=== PATIENT | male | born 1950 | race Caucasian/White ===

== ENCOUNTER 2020-09-14 09:07 | Inpatient (IN) | payer MEDICARE, OTHER ==
[~2020-09-14] VITALS: Ht 177.8 cm; Wt 93.5 kg
[2020-09-14] VITALS (11 sets, daily range): BP systolic 81–102; BP diastolic 47–65
[2020-09-14] MEDS ORDERED: ACET500T68 PO (09:37)
[2020-09-14] MEDS ORDERED: GABA600T7 PO (09:37)
[2020-09-14] MEDS ORDERED: DOCU100C28 PO (09:37)
[2020-09-14] MEDS ORDERED: HYDR-2767 PO (09:37)
[2020-09-14] MEDS ORDERED: ZOLP5TAB PO (09:37)
[2020-09-14] MEDS ORDERED: FINA5TAB4 PO (09:37)
[2020-09-14] MEDS ORDERED: IBUP-1007 PO (09:37)
[2020-09-14] MEDS ORDERED: MELA3TAB43 PO (09:37)
[2020-09-14] MEDS ORDERED: FLUT16SP NS (09:37)
[2020-09-14] MEDS ORDERED: LIDO700A21 TP (09:37)
[2020-09-14] MEDS ORDERED: SERT100T PO (09:58)
[2020-09-14] MEDS ORDERED: PANT20TA2 PO (09:58)
[2020-09-14] MEDS ORDERED: MIRT-36 PO (09:58)
[2020-09-14] MEDS ORDERED: METH-38 PO (09:58)
[2020-09-14] MEDS ORDERED: OXYC5CAP PO (09:58)
[2020-09-14] MEDS ORDERED: TAMS0.4C97 PO (09:58)
[2020-09-14] MEDS ORDERED: POLY2500 PO (09:58)
[2020-09-14] MEDS ORDERED: ONDA-84 PO (09:58)
[2020-09-14] MEDS ORDERED: IV NORMAL SALINE 1000ML BAG 1,000 ML IV SCH (10:30)
[2020-09-14 10:48] LABS: BASO # 0.1 x10^3/uL (0.0-0.2); BASO % 1 % (0-3); EOS # 0.3 x10^3/uL (0.0-0.7); EOS % 5 % (0-3); HEMATOCRIT 23.5 % (39.0-53.0); HEMOGLOBIN 7.9 g/dL (13.0-17.5); LYMPH % 29 % (24-48); MEAN CORPUSCULAR HEMOGLOBIN 32 pg (25-35); MEAN CORPUSCULAR HGB CONC 34 g/dL (31-37); MEAN CORPUSCULAR VOLUME 94 fL (79-100); MONO # 0.5 x10^3/uL (0.0-1.1); MONO % 7 % (0-9); NEUT # 4.1 x10^3/uL (1.8-7.7); NEUT % 58 % (31-73); PLATELET COUNT 174 x10^3/uL (140-400); RED BLOOD COUNT 2.49 x10^6/uL (4.30-5.70); RED CELL DISTRIBUTION WIDTH 12.9 % (11.5-14.5); WHITE BLOOD COUNT 7.1 x10^3/uL (4.0-11.0)
--- NOTE | 2020-09-14 11:10 | PDOC2 ---
GI CONSULT Date of Service: DATE: 09/14/20 TIME: 11:09 Reason For Consult: GI bleed HPI: HPI: 70 y/o male transferred from [facility] who was also discharged from [facility] yesterday to [facility] in [place]. Had SBR there (says 10 inches removed) for incarcerated ventral hernia on 08/21/20. After surgery, had some diarrhea, then constipation, and then began having dark tarry stools yesterday prior to discharge. Had some retching at one point but no vomiting/hematemesis. Says he was anemia after surgery though not clear what most recent Hgb was. H/o GERD/Dutta's esophagus on PPI BID at home - says wasn't taking at [facility]. Throat is sore from [facility]. No dysphagia or abdominal pain. Last EGD and colonoscopy @ w/ Dr. Warner last summer. [facility] S/p cholecystectomy. H/o alcoholism (sober 40 years) but no chronic liver issues. No pancreas history. H/o "bleeding ulcer" ~10 years ago; says negative for H. pylori and was advised not to take NSAIDs. D/w nurse - pt's girlfriend reported possible syncope/near syncope. Nothing from NGT @ [facility]. At [facility]: Hgb 7.6, plt 198, INR 1.2, BUN 70, Cr 0.9, UA negative. Post-operative changes noted on abd x-rays. Has ibuprofen and pantoprazole on med list. Pt seen w/ Dr. Eng in ICU. PMH: PMH: CAD, HTN, NEERAJ, PTSD, urinary retention, BPH, arthritis cholecystectomy, appendectomy, incisional hernia repair, SBR w/ mesh FH: Family History: No pertinent hx Social History: Smoke: Quit ALCOHOL: other (h/o alcoholism; sober x 40 years) Drugs: None ROS: GEN: Denies fevers, chills, sweats HEENT: Denies blurred vision, sore throat CV: Denies chest pain RESP: Denies shortness of air, cough GI: Per HPI : Denies hematuria, dysuria ENDO: Denies weight changes NEURO: ?syncope MSK: Denies weakness, joint pain/swelling SKIN: Denies jaundice, pruritus Vitals: Vitals: Vital Signs Date Time Temp Pulse Resp B/P (MAP) Pulse Ox O2 Delivery O2 Flow Rate FiO2 09/14/20 10:00 66 18 81/54 (63) 97 Room Air 09/14/20 08:40 98.1 98.1 Labs: Labs: Per HPI. Allergies: Coded Allergies: No Known Drug Allergies (Unverified , 09/14/20) Imaging: Imaging: Per HPI. PE: GEN: NAD HEENT: Atraumatic, PERRL; NG clamped LUNGS: CTAB HEART: RRR ABD: NABS, S/ND/NT EXTREMITY: No edema SKIN: No rashes, no jaundice NEURO/PSYCH: A & O 3 A/P: A/P: Melena Anemia GERD/Dutta's esophagus, PUD - reports normal EGD summer 2019 @ [facility] screen - UTD S/p cholecystectomy Recent SBR @ [facility] - discharged yesterday -- Awaiting labs. Transfuse if needed. Check bleeding scan. Okay to remove NGT - can have a few ice chips. PPI drip. Await records from [facility] and . DUSTY RAMON Sep 14, 2020 11:10
[2020-09-14 11:16] LABS: PROTHROMBIN TIME PATIENT 15.7 SEC (11.7-14.0)
[2020-09-14 11:20] LABS: ALBUMIN 2.2 g/dL (3.4-5.0); ALBUMIN/GLOBULIN RATIO 0.8 (1.0-1.7); CALCIUM 8.2 mg/dL (8.5-10.1); CREATININE 0.8 mg/dL (0.7-1.3); GFR 95.3; POTASSIUM 4.3 mmol/L (3.5-5.1); TOTAL BILIRUBIN 0.2 mg/dL (0.2-1.0); TOTAL PROTEIN 4.9 g/dL (6.4-8.2)
[2020-09-14] MEDS: PANTOPRAZOLE SODIUM IV DRIP 80 MG in IV NORMAL SALINE 100ML 100 ML IV SCH ×2 (11:41→23:36)
[2020-09-14] MEDS ORDERED: HEPARIN for NUC MED 500 UNIT/5 ML DISP.SYRIN. IV ONE (11:45)
[2020-09-14] MEDS: fentaNYL PF VIAL 100 MCG/2 ML VIAL IVP PRN ×3 (12:20→20:57)
[2020-09-14] MEDS: IV NORMAL SALINE 1000ML BAG 1,000 ML IV SCH ×2 (12:24→19:36)
--- NOTE | 2020-09-14 16:28 | NUR ---
SS following for discharge planning. SS reviewed pt chart and discussed with pt RN. Pt is skilled rehabilitation resident from [facility] in [place], ; fax [phone]. Pt was transferred from [facility] to [facility] for GI bleed. Pt had one unit of blood. Hemoglobin 7.9. Pt currently on room air. Pt reported that he is at [facility] [place] but does have [facility] Medicare insurance plan as well. Copies of insurance cards being placed in chart. Pt reported that he does not want to return to [facility]. Pt reported that he want to go to the [facility] at the [facility]. SS contacted pt's [facility] SW, Lara Colindres, , by phone. Lara reported that the [facility] is not taking admissions at this time due to COVID19. She reported that there is no other outside facility that the [place] can transfer pt to at this time. Lara reported that pt does have the right to go to any chcf unit under his [facility] Medicare benefit if he is adamant about not wanting to return to [facility] in [place]. Pt reported understanding. SS will continue to follow for discharge planning.
--- NOTE | 2020-09-14 16:47 | RAD ---
RADIONUCLIDE TAGGED RBC SCAN Clinical History: GI bleed, dark stool, post small bowel resection. Technique: 33 mCi Tc-99m labeled red blood cells prepared with Ultratag technique were administered i ntravenously. Anterior dynamic images of the abdomen were obtained for 60 minutes. Findings: There is tracer seen within the vascular pool. There is no accumulation or propagation of tracer to s uggest an active bleed. There is incidental penile blush. IMPRESSION: No evidence of acute GI bleed. Electronically signed by: Hunter Islas MD (09/14/2020 4:44 PM) [id number]
--- NOTE | 2020-09-14 17:23 | NUR ---
Patient transfer report called to [facility] at 1711. Patient to be transferred to 4.
[2020-09-15] MEDS: IV NORMAL SALINE 1000ML BAG 1,000 ML IV SCH ×3 (02:23→16:44)
[2020-09-15 02:30] VITALS: BP 117/64
[2020-09-15] MEDS: fentaNYL PF VIAL 100 MCG/2 ML VIAL IVP PRN ×2 (05:00→09:31)
[2020-09-15 07:00] VITALS: BP 107/58
--- NOTE | 2020-09-15 09:22 | NUR ---
SW following. Discussed with RN, pt from [facility], but per Ade (SS) does not want to return. No PT/OT or COVID ordered as of this morning - informed RN these would be needed for placement anywhere else, as well as to return to [facility]. Pt wanting to go to the [place] [facility] however they have stated they are not currently taking admissions. Pt may have to return to [facility] and transfer from there to the [place] [facility] when they are accepting admissions. SW will continue to follow.
[2020-09-15] MEDS: PANTOPRAZOLE SODIUM IV DRIP 80 MG in IV NORMAL SALINE 100ML 100 ML IV SCH (09:31)
[2020-09-15] MEDS ORDERED: POLYETHYLENE GLYCOL 3350 17 GM PACKET. PO PRN (09:45)
[2020-09-15] MEDS ORDERED: ZOLPIDEM 5 MG TABLET. PO PRN (10:45)
--- NOTE | 2020-09-15 10:53 | PDOC ---
Date of Service: DATE: 09/15/20 TIME: 10:35 Subjective: Subjective: No bleeding - "hasn't been able to go." Requests half a dose of Miralax PRN. Would like ice water. "How did my blood get low?" No abdominal pain, passing gas. Wants to walk to toilet and not try to use commode. Objective: Objective: [facility] records received: Hgb 16.0 on 08/26/20. H/o appendectomy complicated by abscess requiring exploratory laparotomy w/ right hemicolectomy, developed multiple ventral incisional hernias. Hernia repair attempted but surgery aborted due to large hernia size. Then on 07/29/20, underwent robotic assisted laparoscopic bilateral medial component separation w/ repair of incarcerated incisional hernia w/ mesh. Slow recovery, difficulties w/ pain control and bowel function. Interval CT demonstrated posterior rectus sheath blowout from recent surgery. Back to OR on 08/02 for robotic assisted laparoscopic repair of recurrent incarcerated incisional hernia w/ mesh to bridge the posterior fascia. Apparently progressed well afterwards and discharged to home on 08/06. On 08/27/20: Preop: SBO w/ large ventral hernia. Postop: Multiple large ventral hernia, abdominal wall fluid collections, internal hernias, necrotic small bowel. Operation: exploratory laparotomy, explantation of old mesh, SBR (path w/ mucosal erosion w/ focal transmural acute inflammation and acute serositis, fibrous serosal adhesions), extensive RAH, repair of multiple large ventral hernias, bridging mesh placement x 2, complex abdominal wall closure. PMH also includes: right rotator cuff repair and surgery x 3 for right shoulder infections, foot surgery, coronary stent placement, small paraesophageal hiatal hernia noted on CT at one point FH includes: lung cancer (mother), pancreatic cancer (father) Vital Signs: Vital Signs Date Time Temp Pulse Resp B/P (MAP) Pulse Ox O2 Delivery O2 Flow Rate FiO2 09/15/20 09:31 Room Air 09/15/20 07:00 98.3 75 16 107/58 (74) 98 98.3 Imaging: Bleed Scan 09/14 IMPRESSION: No evidence of acute GI bleed. PE: GEN: NAD - up in chair LUNGS: CTAB HEART: RRR ABD: quiet, some distended, non-tender NEURO/PSYCH: A & O 3 A/P: Melena Anemia GERD/Dutta's esophagus, PUD - reports normal EGD summer 2019 @ [facility] CRC screen - UTD S/p cholecystectomy S/p SBR, RAH, mesh explant, bridging mesh placement, repair of multiple large ventral hernias, complex abdominal wall closure @ [facility] on 08/27/20 -- Reviewed w/ Dr. Eng - okay to try clears and a little Miralax. Defer his c/o pain to primary. Continue PPI, await recheck of Hgb. Reviewed [facility] records as above - latest lab from 08/26. No records from . Justicifation of Admission Dx: Justifications for Admission: Justification of Admission Dx: Yes DUSTY RAMON Sep 15, 2020 10:53
[2020-09-15 11:00] VITALS: BP 98/59
[2020-09-15] MEDS ORDERED: ONDANSETRON PF 4 MG/2 ML VIAL. IVP PRN (11:00)
[2020-09-15] MEDS: POLYETHYLENE GLYCOL 3350 17 GM PACKET. PO SCH (11:00)
[2020-09-15] MEDS ORDERED: oxyCODONE IR 5 MG TABLET PO PRN (11:00)
--- NOTE | 2020-09-15 11:00 | PN ---
DATE: 09/15/2020 SUBJECTIVE: The patient is resting, slightly propped up in bed, in no apparent distress. On questioning him, he continued to complain of back pain as he fell on his back; however, he denied any nausea or vomiting. He did not have any bowel movement today. He apparently went to the bathroom and could not have any bowel movement and was given MiraLax. PHYSICAL EXAMINATION: GENERAL: When I examined him, he looked pale, no jaundice, cyanosis or thyromegaly. No jugular venous distention. No lower limb edema. VITAL SIGNS: Her heart rate was 75, blood pressure was 107/58, temperature was 98.3, respiratory rate was 16, and oxygen saturation was 98% on room air. HEAD, EYES, EARS, NOSE, AND THROAT: Normocephalic, atraumatic. NECK: Supple. HEART: Showed normal first and second heart sounds. No gallop, rub or murmur. CHEST: Clear to auscultation. No crepitation or rhonchi. ABDOMEN: Distended, soft, nontender. No guarding or rigidity. No organomegaly. All hernial orifices intact. Bowel sounds normal. NEUROLOGIC: He is awake, alert, responding appropriately. All cranial nerves are intact. He moves extremities without difficulty. His intake over the last 24 hours was incompletely recorded. LABORATORY DATA: His lab work is still pending at the time of this dictation. PLAN: To continue. He was seen by the Gastroenterology team, has had GI bleeding scan, it was negative. We will monitor his H and H every 8 hours and once stabilized, he can be [facility]. He has ibuprofen in his medication list, but apparently according to him he is not taking any ibuprofen. We will continue with all his other medications and decide the further management accordingly. GILDA ALVARADO MD DR: ANGIE/alina JOB#: [id number] / [id number]
[2020-09-15 11:03] LABS: HEMATOCRIT 21.4 % (39.0-53.0); HEMOGLOBIN 7.3 g/dL (13.0-17.5)
[2020-09-15] MEDS: TAMSULOSIN 0.4 MG CAP.ER.24H. PO SCH (11:04)
[2020-09-15] MEDS: SERTRALINE 50 MG TABLET. PO SCH (11:05)
[2020-09-15] MEDS: LIDOCAINE (700MG/PATCH) PATCH. TP SCH (11:05)
[2020-09-15] MEDS: FINASTERIDE 5 MG TABLET. PO SCH (11:05)
[2020-09-15] MEDS: FLUTICASONE 50MCG/NASAL SPRAY 16GM BOTTLE. NS SCH (11:05)
--- NOTE | 2020-09-15 12:01 | HP ---
ADMIT DATE: 09/14/2020 HISTORY OF PRESENT ILLNESS: The patient is a 70-year-old male patient who apparently was admitted to [facility] on 09/13/2020. He has had small bowel resection for obstruction on 08/22/2020 at [facility]. He apparently was dizzy according to the patient description and was hypotensive and fell backward. He was evaluated in the Emergency Room and according to him, he has had three black tarry stools and evaluation in the Emergency Room showed that his hemoglobin is down to 7.6, hematocrit 23.3 with normal white cell count and platelets. He has received apparently 2 units of packed RBCs and had an NG tube and started on Protonix and was transferred to [facility] ICU for further evaluation and to consult the Gastroenterology team. PAST MEDICAL HISTORY: Significant for benign prostatic hypertrophy, foot infection, gastroesophageal reflux disease, right shoulder osteoarthritis, posttraumatic stress disorder and obstructive sleep apnea. PAST SURGICAL HISTORY: Significant for appendectomy that was laparoscopic done on 01/13/2019. He underwent open right colectomy with drainage of pelvic and abdominal wall abscess on 02/03/2019, has had a cholecystectomy, has had a coronary angioplasty with stent deployment, CT-guided abscess or fluid drainage with catheter placement on 01/26/2019. CT-guided tube check was on 02/02/2019, has had foot surgery with anaerobic infection in [place]. He also had a reducible incisional hernia repair on 03/23/2020. He has laparoscopic robot-assisted using da John 10, laparoscopic incisional hernia that was abandoned or aborted. He had rotator cuff repair of the right shoulder and shoulder arthroscopy and three surgeries for infection of the right side. FAMILY HISTORY: Mother has lung cancer. Father has pancreatic cancer. SOCIAL HISTORY: He is , currently lives alone. He is a former smoker, quit smoking on 03/11/1981, years since quitting was 39 years. He apparently does not drink alcohol or use any recreational drugs. He apparently has had surgery again in 08/2020 and after stabilization, he was transferred to [facility] for rehabilitation. ALLERGIES: He has no known drug allergies. MEDICATIONS: He is currently on following medications: He is on tamsulosin 0.4 mg daily, methocarbamol for Robaxin 500 mg 4 times a day, ibuprofen 600 mg every 6 hours, hydrocodone/APAP 10/325 one tablet every 6 hours, oxycodone 5 mg every 6 hours, acetaminophen 1000 mg every 8 hours, gabapentin 300 mg 3 times a day, mirtazapine 15 mg daily, sertraline 100 mg daily, Ambien 5 mg at bedtime. He is on Flonase 2 sprays to each nostril once a day, Colace 100 mg twice a day, ondansetron 4 mg every 8 hours, Protonix 20 mg daily. He is on Lidoderm patch apply 1 patch topically on for 12 hours and off for 12 hours. He is on finasteride 5-mg tablet daily, melatonin 6 mg at bedtime, and polyethylene glycol 17 grams daily. PHYSICAL EXAMINATION: GENERAL: On arrival to the Emergency Room at [facility], he apparently was pale, but no jaundice, cyanosis or thyromegaly. No jugular venous distension. No lower limb edema. VITAL SIGNS: His heart rate was 72, blood pressure was 104/62, temperature was 98.4, respiratory rate 22, and oxygen saturation was 95% on 2 liters of oxygen. HEAD, EYES, EARS, NOSE AND THROAT: Showed head is normocephalic, atraumatic. NECK: Supple. HEART: Showed normal first and second heart sounds. No gallop, rub or murmur. CHEST: Clear to auscultation. No crepitation or rhonchi. ABDOMEN: Soft. Epigastric tenderness. There is no guarding or rigidity. No organomegaly. He has healing midline scar. Bowel sounds are hyperactive. He has black tarry stools. NEUROLOGIC: He was alert, oriented x 3. He moves extremities on request, has distal sensory deficit, but no gross focal deficits noted. Psychologically, he was anxious; however, his judgment and mood were normal. IMAGING: His EKG showed that he was in sinus rhythm at 78 beats per minute, no findings of acute STEMI. He has had acute abdomen series, which showed abnormal positioning of the nasogastric tube within the distal esophagus with the tube angled retrogradely, repositioning the tube to the stomach would be of benefit. He has postoperative changes in the abdomen. No bowel obstruction. Has an acute abdomen x-ray, which showed that there has been interval advancement of the enteric tube with the tip now located looped into the gastric fundus beyond the gastroesophageal junction. Gas pattern shows mild distention of the small bowel loops. Lung bases are clear. Has cholecystectomy clips that are present. LABORATORY DATA: His lab work done there showed a white cell count of 7200, hemoglobin 7.6, hematocrit 23.3, MCV 97 and platelet count of 198,000. His chemistry showed a serum sodium 138, potassium 4, chloride 107, bicarbonate 25, anion gap of 6, BUN 70, creatinine 0.9, estimated GFR was 83 mL per minute. His glucose was 115, calcium was 7.9. Total bilirubin, AST, ALT, alkaline phosphatase were normal. CK was 28, total protein was 5.4, albumin was 2.3. His prothrombin time was slightly elevated 12, INR 1.2, aPTT was 21 and his urinalysis was essentially unremarkable. ASSESSMENT AND PLAN: The patient was transferred to [facility] with acute gastrointestinal bleed, history of small obstruction, hernia repair, disproportionately elevated BUN indicating probably significant blood loss and hypotension. The patient apparently was on ibuprofen. The patient was kept n.p.o. with NG tube to intermittent suction. He was started on IV fluid, IV Protonix and he did receive apparently 2 units of packed RBCs in the Emergency Room and we did repeat his lab work while in the ICU and his hemoglobin was 7.9, hematocrit 23.5 with normal white cell count and platelets. His chemistry continued to show slightly disproportionately high BUN to creatinine and his prothrombin time was 15.7, INR 1.3, aPTT was 31. I did start him on IV fluid and IV Protonix and we will monitor his H and H every 8 hours and to consult the Gastroenterology team. GILDA ALVARADO MD DR: ANGIE/alina JOB#: [id number] / [id number]
[2020-09-15] MEDS: METHOCARBAMOL 500 MG TABLET PO SCH ×3 (12:28→21:17)
[2020-09-15] MEDS: GABAPENTIN 300 MG CAPSULE. PO SCH ×2 (13:36→21:17)
[2020-09-15] MEDS: ACETAMINOPHEN 500 MG TABLET PO PRN (13:36)
[2020-09-15 14:46] LABS: HEMATOCRIT 21.2 % (39.0-53.0); HEMOGLOBIN 7.3 g/dL (13.0-17.5)
[2020-09-15 15:00] VITALS: BP 97/61
[2020-09-15 15:02] LABS: CALCIUM 8.2 mg/dL (8.5-10.1); CREATININE 0.9 mg/dL (0.7-1.3); GFR 83.2; POTASSIUM 3.8 mmol/L (3.5-5.1)
[2020-09-15] MEDS: PANTOPRAZOLE IV PUSH 40 MG VIAL. IVP SCH (16:44)
[2020-09-15 19:00] VITALS: BP 105/60
[2020-09-15] MEDS ORDERED: NON FORMULARY ITEM (Melatonin 2 TAB) PO SCH (21:00)
[2020-09-15] MEDS: MIRTAZAPINE 15 MG TABLET PO SCH (21:17)
[2020-09-15] MEDS: HYDROcodone/APAP 10/325 1 TAB TABLET PO PRN (21:23)
[2020-09-15 23:00] VITALS: BP 91/58
[2020-09-16] VITALS (11 sets, daily range): BP systolic 83–127; BP diastolic 33–70
[2020-09-16] MEDS: SERTRALINE 50 MG TABLET. PO SCH (08:10)
[2020-09-16] MEDS: METHOCARBAMOL 500 MG TABLET PO SCH ×4 (08:10→21:55)
[2020-09-16] MEDS: FINASTERIDE 5 MG TABLET. PO SCH (08:10)
[2020-09-16] MEDS: GABAPENTIN 300 MG CAPSULE. PO SCH ×3 (08:10→21:56)
[2020-09-16] MEDS: TAMSULOSIN 0.4 MG CAP.ER.24H. PO SCH (08:10)
[2020-09-16] MEDS: POLYETHYLENE GLYCOL 3350 17 GM PACKET. PO SCH (08:11)
[2020-09-16] MEDS: LIDOCAINE (700MG/PATCH) PATCH. TP SCH (08:11)
[2020-09-16] MEDS: PANTOPRAZOLE IV PUSH 40 MG VIAL. IVP SCH (08:11)
[2020-09-16] MEDS: FLUTICASONE 50MCG/NASAL SPRAY 16GM BOTTLE. NS SCH (08:11)
[2020-09-16] MEDS: IV NORMAL SALINE 1000ML BAG 1,000 ML IV SCH ×2 (08:12→17:15)
[2020-09-16 08:30] LABS: RED BLOOD COUNT 2.16 x10^6/uL (4.30-5.70); RED CELL DISTRIBUTION WIDTH 13.2 % (11.5-14.5); WHITE BLOOD COUNT 4.4 x10^3/uL (4.0-11.0)
[2020-09-16 08:50] LABS: ALBUMIN 2.2 g/dL (3.4-5.0); ALBUMIN/GLOBULIN RATIO 0.8 (1.0-1.7); CALCIUM 8.2 mg/dL (8.5-10.1); CREATININE 0.8 mg/dL (0.7-1.3); GFR 95.3; POTASSIUM 3.5 mmol/L (3.5-5.1); TOTAL BILIRUBIN 0.3 mg/dL (0.2-1.0); TOTAL PROTEIN 4.9 g/dL (6.4-8.2)
[2020-09-16 08:58] LABS: HEMATOCRIT 20.5 % (39.0-53.0)
--- NOTE | 2020-09-16 09:39 | NUR ---
SW following. Discussed with RN, pt from [facility], room air. PT/OT and COVID ordered late yesterday. Awaiting PT/OT recommendations. SW will continue to follow.
--- NOTE | 2020-09-16 11:00 | PN ---
DATE: 09/16/2020 SUBJECTIVE: The patient is sitting slightly propped up in bed, in no apparent distress. On questioning him, he denied any complaint, in particular denied any nausea or vomiting. Denied any abdominal pain. Denied any dizziness, lightheadedness, or vertigo. He did have two bowel movements last night, but apparently with dark tarry stool according to him. His H and H is drifting down and yesterday his H and H was 7.3 and 21. This morning, his H and H was 7 and 20 and I did order 1 unit of packed RBCs. Currently, on 08/26/2020, his hemoglobin was 16, which means that he has significant blood loss, although his BUN and creatinine is actually coming down, indicating probably that he is no longer actively bleeding as his BUN at [facility] was 17 and creatinine was only 0.9 mg/dL, indicating significant blood loss. PHYSICAL EXAMINATION: GENERAL: When I examined him this morning, he looked pale. Not jaundiced, cyanosed or thyromegaly. No jugular venous distension. No lower limb edema. VITAL SIGNS: His heart rate was 64, blood pressure was 98/61, temperature was 97.9, respiratory rate was 18 and oxygen saturation was 95%. Head, Eyes, Ears, Nose, And Throat: Showed normocephalic, atraumatic. NECK: Supple. HEART: Showed normal first and second heart sounds. No gallop, rub or murmur. CHEST: Showed central trachea, equal bilateral chest expansion, air entry, vesicular sounds. No crepitation or rhonchi. ABDOMEN: Distended, soft, nontender. There is definitely no guarding or rigidity. No organomegaly. All hernial orifice intact. Bowel sounds normal. NEUROLOGIC: He was awake, alert, responding appropriately. All cranial nerves are intact. He moves extremities without difficulty. He ambulates without assistance or assistive devices. His intake over the last 24 hours was 800, output was 2500. LABORATORY DATA: As of this morning, his white cell count was 4400; hemoglobin 7; hematocrit 20; MCV 95; and platelet count of 155,000. His chemistry showed a serum sodium 141, potassium 3.5, chloride 108, bicarbonate 24, anion gap of 9, BUN 15, creatinine 0.8, estimated GFR was 95 mL per minute. His glucose was 95, calcium was 8.2. Total bilirubin, AST, ALT, alkaline phosphatase were normal. Total protein was 4.9, albumin was 2.2. ASSESSMENT: Acute blood loss anemia. His H and H have drifted down to 7 and 20, and we will type and cross and transfuse him 1 unit of packed RBCs. The patient remained hemodynamically stable. He did have 2 bowel movements that are dark tarry stool according to him, although his BUN and creatinine are well within normal limit. Other medical problems include benign prostatic hypertrophy, gastroesophageal reflux disease, obstructive sleep apnea, and multiple ventral hernia repair with resultant right hemicolectomy and drainage of pelvic and abdominal wall abscess. He had also most recently laparotomy and repair of all ventral hernias. PLAN: My plan is to continue with clear liquids, continue with IV fluids. We will type and cross and transfuse him 1 unit of packed RBCs. I will also check his hematinics and repeat his H and H this afternoon and tomorrow morning and if it remains stable, he can be discharged back home unless the portuguese tutor has other recommendation. GILDA ALVARADO MD DR: ANGIE/alina JOB#: [id number] / [id number]
--- NOTE | 2020-09-16 11:15 | PDOC ---
Date of Service: DATE: 09/16/20 TIME: 11:11 Subjective: Subjective: Two more black stools, blood pressure has been low, feels weak. Would like a scope. Objective: Objective: Nurse present - plans for transfusion. Vital Signs: Vital Signs Date Time Temp Pulse Resp B/P (MAP) Pulse Ox O2 Delivery O2 Flow Rate FiO2 09/16/20 10:56 98.2 66 16 103/49 98.2 09/16/20 08:00 Room Air 09/16/20 07:00 95 Labs: Laboratory Tests Test 09/15/20 14:36 09/16/20 07:25 Hemoglobin 7.3 g/dL 7.0 g/dL Hematocrit 21.2 % 20.5 % Sodium Level 139 mmol/L 141 mmol/L Potassium Level 3.8 mmol/L 3.5 mmol/L Chloride Level 107 mmol/L 108 mmol/L Carbon Dioxide Level 25 mmol/L 24 mmol/L Anion Gap 7 9 Blood Urea Nitrogen 27 mg/dL 15 mg/dL Creatinine 0.9 mg/dL 0.8 mg/dL Estimated GFR (Cockcroft-Gault) 83.2 95.3 Glucose Level 108 mg/dL 95 mg/dL Calcium Level 8.2 mg/dL 8.2 mg/dL White Blood Count 4.4 x10^3/uL Red Blood Count 2.16 x10^6/uL Mean Corpuscular Volume 95 fL Mean Corpuscular Hemoglobin 32 pg Mean Corpuscular Hemoglobin Concent 34 g/dL Red Cell Distribution Width 13.2 % Platelet Count 155 x10^3/uL BUN/Creatinine Ratio 19 Iron Level 42 ug/dL Total Iron Binding Capacity 193 ug/dL Iron Saturation 22 % Ferritin 204 ng/mL Total Bilirubin 0.3 mg/dL Aspartate Amino Transf (AST/SGOT) 27 U/L Alanine Aminotransferase (ALT/SGPT) 34 U/L Alkaline Phosphatase 39 U/L Total Protein 4.9 g/dL Albumin 2.2 g/dL Albumin/Globulin Ratio 0.8 PE: GEN: NAD LUNGS: clear HEART: RRR ABD: S/ND/NT NEURO/PSYCH: A & O 3 A/P: Melena Anemia - Hgb drift to 7 GERD/Dutta's esophagus, h/o PUD - on PPI Recent SBR @ [facility] -- Agree w/ transfusion, continue PPI. ?EGD - will review w/ Dr. Eng - d/w nurse - NPO for now. (Would need COVID swab if EGD pursued.) Justicifation of Admission Dx: Justifications for Admission: Justification of Admission Dx: Yes DUSTY RAMON Sep 16, 2020 11:15
[2020-09-16] MEDS ORDERED: IV RINGERS,LACTATED 1000ML 1,000 ML IV SCH (12:45)
[2020-09-16] MEDS ORDERED: PROPOFOL 10 MG/ML (20ML) VIAL. IV ONE (13:00)
--- NOTE | 2020-09-16 13:26 | PDOC4 ---
PROCEDURE Procedure EGD Indication: persistent melena Findings: E--Healed reflux distally; no clear Dutta's (ultrashort if present). G--Normal D--1.0 cm ulcer near junction; of bulb and first portion. No active bleeding, clot, or other stigmata to indicate high-risk of rebleeding. No blood in duodenum. Cony. well. IMP: DU, probably bled near discharge from [facility]. No signs of recent bleeding. GERD, no obvious Dutta's. REC: Continue clears another 48 hours. PO PPI BID; more effective PO. If hemoglobin stable over 48 hours, advance diet. ROWAN GAO MD Sep 16, 2020 13:26
[2020-09-16] MEDS: HYDROcodone/APAP 10/325 1 TAB TABLET PO PRN ×2 (14:03→21:55)
[2020-09-16] MEDS: PANTOPRAZOLE 40 MG TABLET.DR. PO SCH (16:34)
[2020-09-16 16:52] LABS: HEMATOCRIT 21.1 % (39.0-53.0); HEMOGLOBIN 7.2 g/dL (13.0-17.5)
[2020-09-16] MEDS: MIRTAZAPINE 15 MG TABLET PO SCH (21:55)
[2020-09-17 03:00] VITALS: BP 128/57
[2020-09-17] MEDS: IV NORMAL SALINE 1000ML BAG 1,000 ML IV SCH ×4 (04:49→21:13)
[2020-09-17 07:33] VITALS: BP 112/63
[2020-09-17] MEDS: METHOCARBAMOL 500 MG TABLET PO SCH ×4 (08:39→20:58)
[2020-09-17] MEDS: GABAPENTIN 300 MG CAPSULE. PO SCH ×3 (08:39→20:58)
[2020-09-17] MEDS: SERTRALINE 50 MG TABLET. PO SCH (08:39)
[2020-09-17] MEDS: FINASTERIDE 5 MG TABLET. PO SCH (08:39)
[2020-09-17] MEDS: POLYETHYLENE GLYCOL 3350 17 GM PACKET. PO SCH (08:40)
[2020-09-17] MEDS: PANTOPRAZOLE 40 MG TABLET.DR. PO SCH ×2 (08:40→15:14)
[2020-09-17] MEDS: FLUTICASONE 50MCG/NASAL SPRAY 16GM BOTTLE. NS SCH (08:40)
[2020-09-17] MEDS: TAMSULOSIN 0.4 MG CAP.ER.24H. PO SCH (08:40)
[2020-09-17 08:42] LABS: HEMATOCRIT 22.5 % (39.0-53.0); HEMOGLOBIN 7.8 g/dL (13.0-17.5); RED BLOOD COUNT 2.39 x10^6/uL (4.30-5.70); RED CELL DISTRIBUTION WIDTH 13.7 % (11.5-14.5); WHITE BLOOD COUNT 8.2 x10^3/uL (4.0-11.0)
[2020-09-17] MEDS: LIDOCAINE (700MG/PATCH) PATCH. TP SCH (09:00)
[2020-09-17 09:14] LABS: ALBUMIN 2.3 g/dL (3.4-5.0); ALBUMIN/GLOBULIN RATIO 0.9 (1.0-1.7); CREATININE 0.8 mg/dL (0.7-1.3); GFR 95.3; POTASSIUM 3.4 mmol/L (3.5-5.1); TOTAL BILIRUBIN 0.4 mg/dL (0.2-1.0)
--- NOTE | 2020-09-17 10:33 | PN ---
DATE: 09/17/2020 SUBJECTIVE: The patient is resting, slightly propped up in bed, in no apparent distress. Denied any nausea or vomiting. Denied abdominal pain. He continued to have melena stool. He underwent upper GI endoscopy yesterday, which showed that he has healed reflux distally. His stomach is normal. There is 1-cm ulcer near the junction of the bulb and first portion of the duodenum with no active bleeding, clot or other stigmata to indicate high risk of bleeding. No blood in the duodenum and the impression was that the patient probably has duodenal ulcer. No sign of recent bleeding and the assignment desk editor recommended clears for another 48 hours p.o. b.i.d. and if hemoglobin remains stable, we will advance diet and can be discharged home probably on Saturday. PHYSICAL EXAMINATION: GENERAL: When I examined him this morning, he looked pale. No jaundice, cyanosis or thyromegaly. No jugular venous distension. No lower limb edema. VITAL SIGNS: His heart rate was 72, blood pressure was 112/63, temperature 97.7, respiratory rate was 18 and oxygen saturation was 93%. The rest of the clinical exam is stable. His intake over the last 24 hours was incompletely recorded, output was 1200. LABORATORY DATA: As of this morning, his serum sodium was 139, potassium 3.4, chloride 105, bicarbonate 25, anion gap of 9, BUN 8, creatinine 0.8, estimated GFR was 95 mL per minute. His glucose was 96, calcium was 8. Serum iron 42, TIBC was 193 and iron saturation was 22. His serum ferritin was 204. Total bilirubin, AST, ALT, alkaline phosphatase were normal. Total protein 5, albumin was 2.3. ASSESSMENT: 1. Acute blood loss anemia. His hemoglobin has dropped from 16 to 7. He received 1 unit of packed RBCs. 2. EGD showed that he has duodenal ulcer with no active bleeding and his H and H has stabilized at 7.6. Other medical problems include: A. Benign prostatic hypertrophy. B. Gastroesophageal reflux disease. C. Obstructive sleep apnea. PLAN: Is to continue with clear liquid, continue with oral proton pump inhibitor. We will continue to monitor his H and H and once stable, he can advance his diet and hopefully discharge him back to [facility] on Saturday. AHMED M. JENNY, MD DR: ANGIE/alina JOB#: [id number] / [id number]
[2020-09-17 11:19] VITALS: BP 130/70
--- NOTE | 2020-09-17 13:14 | NUR ---
1300 and 1400 meds non admin as pt did not want to take a.m. doses until 1100
[2020-09-17 15:13] VITALS: BP 121/73
[2020-09-17] MEDS: ACETAMINOPHEN 500 MG TABLET PO PRN (15:14)
[2020-09-17] MEDS ORDERED: SIMETHICONE 80 MG TAB.CHEW PO PRN (15:15)
--- NOTE | 2020-09-17 17:20 | PDOC ---
GI PROGRESS NOTES Date of Service: Date/Time DATE: 09/17/20 TIME: 17:18 Subjective Subjective Complaining of some lower abdominal cramping and loose stools. Objective Vitals Vital Signs Date Time Temp Pulse Resp B/P (MAP) Pulse Ox O2 Delivery O2 Flow Rate FiO2 09/17/20 15:13 102.2 89 18 121/73 (89) 96 BiPAP/CPAP 102.2 09/17/20 11:19 98.0 74 18 130/70 (90) 96 BiPAP/CPAP 98.0 09/17/20 08:00 Room Air 2.0 09/17/20 07:33 97.7 72 18 112/63 (79) 93 BiPAP/CPAP 97.7 09/17/20 03:00 60 18 128/57 (80) 95 BiPAP/CPAP 09/16/20 23:00 69 20 127/70 (89) 94 Room Air 09/16/20 22:55 20 Room Air 09/16/20 21:55 20 Room Air 09/16/20 20:00 Room Air 09/16/20 19:00 98.5 64 20 124/70 (88) 97 Room Air 98.5 Labs Labs Laboratory Tests Test 09/17/20 07:42 White Blood Count 8.2 x10^3/uL (4.0-11.0) Red Blood Count 2.39 x10^6/uL (4.30-5.70) Hemoglobin 7.8 g/dL (13.0-17.5) Hematocrit 22.5 % (39.0-53.0) Mean Corpuscular Volume 94 fL (79-100) Mean Corpuscular Hemoglobin 33 pg (25-35) Mean Corpuscular Hemoglobin Concent 35 g/dL (31-37) Red Cell Distribution Width 13.7 % (11.5-14.5) Platelet Count 161 x10^3/uL (140-400) Sodium Level 139 mmol/L (136-145) Potassium Level 3.4 mmol/L (3.5-5.1) Chloride Level 105 mmol/L (98-107) Carbon Dioxide Level 25 mmol/L (21-32) Anion Gap 9 (6-14) Blood Urea Nitrogen 8 mg/dL (8-26) Creatinine 0.8 mg/dL (0.7-1.3) Estimated GFR (Cockcroft-Gault) 95.3 BUN/Creatinine Ratio 10 (6-20) Glucose Level 96 mg/dL (70-99) Calcium Level 8.0 mg/dL (8.5-10.1) Total Bilirubin 0.4 mg/dL (0.2-1.0) Aspartate Amino Transf (AST/SGOT) 22 U/L (15-37) Alanine Aminotransferase (ALT/SGPT) 32 U/L (16-63) Alkaline Phosphatase 49 U/L (46-116) Total Protein 5.0 g/dL (6.4-8.2) Albumin 2.3 g/dL (3.4-5.0) Albumin/Globulin Ratio 0.9 (1.0-1.7) Physical Exam Physical Exam Alert Chest clear Heart regular rate and rhythm Abdomen soft, nontender Assessment Assessment Duodenal ulcer. No active bleeding at the time of endoscopy yesterday but clearly the most likely source of his recent melena Lower abdominal cramping. This is related to his loose stools and probably is from his underlying melena. Fortunately his hemoglobin is stable and going up. Plan Plan Continue liquid diet and advance as tolerated Monitor for further symptoms. Would expect most of his abdominal complaints to gradually improve Justicifation of Admission Dx: Justifications for Admission: Justification of Admission Dx: Yes RIN MADDEN MD Sep 17, 2020 17:20
[2020-09-17 19:00] VITALS: BP 129/66
[2020-09-17] MEDS: MIRTAZAPINE 15 MG TABLET PO SCH (20:58)
[2020-09-17 23:00] VITALS: BP 114/63
[2020-09-18 03:00] VITALS: BP 129/72
[2020-09-18 04:06] LABS: HEMATOCRIT 22.4 % (39.0-53.0); HEMOGLOBIN 7.8 g/dL (13.0-17.5)
[2020-09-18 04:23] LABS: CALCIUM 8.5 mg/dL (8.5-10.1); CREATININE 0.9 mg/dL (0.7-1.3); GFR 83.2; POTASSIUM 3.1 mmol/L (3.5-5.1)
[2020-09-18] MEDS: HYDROcodone/APAP 10/325 1 TAB TABLET PO PRN (05:59)
[2020-09-18 07:00] VITALS: BP 136/74
[2020-09-18] MEDS: PANTOPRAZOLE 40 MG TABLET.DR. PO SCH ×2 (07:26→16:32)
[2020-09-18] MEDS: GABAPENTIN 300 MG CAPSULE. PO SCH ×3 (08:19→21:02)
[2020-09-18] MEDS: LIDOCAINE (700MG/PATCH) PATCH. TP SCH (08:20)
[2020-09-18] MEDS: SERTRALINE 50 MG TABLET. PO SCH (08:20)
[2020-09-18] MEDS: FINASTERIDE 5 MG TABLET. PO SCH (08:20)
[2020-09-18] MEDS: TAMSULOSIN 0.4 MG CAP.ER.24H. PO SCH (08:20)
[2020-09-18] MEDS: POLYETHYLENE GLYCOL 3350 17 GM PACKET. PO SCH (08:20)
[2020-09-18] MEDS: METHOCARBAMOL 500 MG TABLET PO SCH ×4 (08:20→21:02)
[2020-09-18] MEDS: FLUTICASONE 50MCG/NASAL SPRAY 16GM BOTTLE. NS SCH (08:21)
[2020-09-18 10:26] LABS: BILIRUBIN,URINE NEGATIVE (NEG); CLARITY,URINE CLEAR; COLOR,URINE YELLOW; NITRITE,URINE NEGATIVE (NEG); PH,URINE 6.5 (<5.0-8.0); PROTEIN,URINE NEGATIVE (NEG-TRACE)
[2020-09-18] MEDS: cefTRIAXone IV Push 1 GM VIAL. IVP SCH (10:31)
[2020-09-18 11:00] VITALS: BP 127/79
[2020-09-18 11:33] LABS: BACTERIA,URINE MODERATE /HPF (0-FEW); RBC,URINE 0 /HPF (0-2)
[2020-09-18] MEDS: IV NORMAL SALINE 1000ML BAG 1,000 ML IV SCH ×2 (13:27→21:03)
--- NOTE | 2020-09-18 14:06 | PDOC ---
GI PROGRESS NOTES Date of Service: Date/Time DATE: 09/18/20 TIME: 14:04 Subjective Subjective Feeling better. Tolerated a soft diet. No further melena. Does describe some suprapubic burning and dysuria. Objective Vitals Vital Signs Date Time Temp Pulse Resp B/P (MAP) Pulse Ox O2 Delivery O2 Flow Rate FiO2 09/18/20 11:00 99.4 69 18 127/79 (95) 94 Room Air 99.4 09/18/20 07:30 Room Air 09/18/20 07:24 Room Air 09/18/20 07:00 97.6 70 16 136/74 (94) 93 Room Air 97.6 09/18/20 05:59 18 95 Room Air 09/18/20 03:00 100.1 72 20 129/72 (91) 94 Room Air 100.1 09/17/20 23:00 98.0 64 20 114/63 (80) 95 Room Air 98.0 09/17/20 20:16 Room Air 09/17/20 19:00 99.8 69 20 129/66 (87) 95 Room Air 99.8 09/17/20 15:13 102.2 89 18 121/73 (89) 96 BiPAP/CPAP 102.2 Labs Labs Laboratory Tests Test 09/18/20 03:30 09/18/20 09:13 Hemoglobin 7.8 g/dL (13.0-17.5) Hematocrit 22.4 % (39.0-53.0) Sodium Level 140 mmol/L (136-145) Potassium Level 3.1 mmol/L (3.5-5.1) Chloride Level 105 mmol/L (98-107) Carbon Dioxide Level 28 mmol/L (21-32) Anion Gap 7 (6-14) Blood Urea Nitrogen 4 mg/dL (8-26) Creatinine 0.9 mg/dL (0.7-1.3) Estimated GFR (Cockcroft-Gault) 83.2 Glucose Level 104 mg/dL (70-99) Calcium Level 8.5 mg/dL (8.5-10.1) Urine Collection Type Unknown Urine Color Yellow Urine Clarity Clear Urine pH 6.5 (<5.0-8.0) Urine Specific [place] 1.010 (1.000-1.030) Urine Protein Negative mg/dL (NEG-TRACE) Urine Glucose (UA) Negative mg/dL (NEG) Urine Ketones (Stick) Negative mg/dL (NEG) Urine Blood Negative (NEG) Urine Nitrite Negative (NEG) Urine Bilirubin Negative (NEG) Urine Urobilinogen Dipstick 1.0 mg/dL (0.2 mg/dL) Urine Leukocyte Esterase Small (NEG) Urine RBC 0 /HPF (0-2) Urine WBC 11-20 /HPF (0-4) Urine Squamous Epithelial Cells Few /LPF Urine Bacteria Moderate /HPF (0-FEW) Urine Mucus Slight /LPF Physical Exam Physical Exam Alert Chest clear Heart regular rate and rhythm Abdomen soft, nontender Assessment Assessment Duodenal ulcer. No active bleeding at the time of endoscopy yesterday but clearly the most likely source of his recent melena-hemoglobin and clinical status stable. Lower abdominal/suprapubic burning -urine analysis revealed some white blood cells. Will defer to hospitalist on treatment options Agree with soft GI diet Plan Plan Continue liquid diet and advance as tolerated Monitor for further symptoms. Would expect most of his abdominal complaints to gradually improve Justicifation of Admission Dx: Justifications for Admission: Justification of Admission Dx: Yes RIN MADDEN MD Sep 18, 2020 14:06
[2020-09-18 15:00] VITALS: BP 145/64
[2020-09-18 16:29] LABS: HEMATOCRIT 23.6 % (39.0-53.0); HEMOGLOBIN 8.3 g/dL (13.0-17.5)
[2020-09-18 19:00] VITALS: BP 100/54
[2020-09-18] MEDS: MIRTAZAPINE 15 MG TABLET PO SCH (21:02)
[2020-09-18 23:01] VITALS: BP 119/78
[2020-09-19 03:20] VITALS: BP 117/67
[2020-09-19 07:00] VITALS: BP 132/70
[2020-09-19 07:33] LABS: HEMATOCRIT 23.4 % (39.0-53.0); RED BLOOD COUNT 2.48 x10^6/uL (4.30-5.70); WHITE BLOOD COUNT 7.5 x10^3/uL (4.0-11.0)
[2020-09-19 07:42] LABS: CALCIUM 8.3 mg/dL (8.5-10.1); CREATININE 0.9 mg/dL (0.7-1.3); GFR 83.2; POTASSIUM 3.2 mmol/L (3.5-5.1)
[2020-09-19] MEDS: FINASTERIDE 5 MG TABLET. PO SCH (08:12)
[2020-09-19] MEDS: LIDOCAINE (700MG/PATCH) PATCH. TP SCH (08:12)
[2020-09-19] MEDS: PANTOPRAZOLE 40 MG TABLET.DR. PO SCH ×2 (08:12→16:14)
[2020-09-19] MEDS: SERTRALINE 50 MG TABLET. PO SCH (08:12)
[2020-09-19] MEDS: TAMSULOSIN 0.4 MG CAP.ER.24H. PO SCH (08:12)
[2020-09-19] MEDS: POLYETHYLENE GLYCOL 3350 17 GM PACKET. PO SCH (08:12)
[2020-09-19] MEDS: GABAPENTIN 300 MG CAPSULE. PO SCH ×4 (08:13→20:49)
[2020-09-19] MEDS: FLUTICASONE 50MCG/NASAL SPRAY 16GM BOTTLE. NS SCH (08:13)
[2020-09-19] MEDS: METHOCARBAMOL 500 MG TABLET PO SCH ×5 (08:13→20:49)
[2020-09-19] MEDS ORDERED: POTASSIUM CHLORIDE 20 MEQ TABLET.ER. PO ONE (08:30)
[2020-09-19] MEDS: IV NORMAL SALINE 1000ML BAG 1,000 ML IV SCH ×2 (09:57→19:57)
[2020-09-19] MEDS: POTASSIUM CHLORIDE 20 MEQ TABLET.ER. PO SCH ×2 (10:00→16:14)
--- NOTE | 2020-09-19 10:00 | PN ---
DATE: 09/19/2020 SUBJECTIVE: The patient is resting, slightly propped up in bed, in no apparent distress. He continued to complain of abdominal pain, mostly in the suprapubic area. He denied any nausea or vomiting. He has not had any bowel movement yet. PHYSICAL EXAMINATION: GENERAL: When I examined him, he looked well, slightly pale, but no jaundice, cyanosis or thyromegaly. No jugular venous distension. No lower limb edema. VITAL SIGNS: His heart rate was 67, blood pressure was 132/70, temperature was 98.2, respiratory rate was 18 and oxygen saturation was 96%. HEAD, EYES, EARS, NOSE AND THROAT: Showed normocephalic, atraumatic. NECK: Supple. HEART: Showed normal first and second heart sounds. No gallop, rub or murmur. CHEST: Clear to auscultation. No crepitation or rhonchi. ABDOMEN: Distended, soft, nontender. No guarding or rigidity. No organomegaly. All hernial orifice intact. Bowel sounds normal. NEUROLOGIC: He was grossly intact. Her intake was 2100, output was 1500. LABORATORY DATA: As of this morning, his white cell count was 7500, hemoglobin 8, hematocrit 23, MCV 94, platelet count of 200,000. His chemistry showed a serum sodium 141, potassium 3.2, chloride 107, bicarbonate 27, anion gap of 7, BUN 4, creatinine 0.9, estimated GFR was 82 mL per minute. His glucose was 95 and calcium was 8.3. ASSESSMENT: 1. Acute blood loss anemia. His hemoglobin and hematocrit stabilized around 8 and 24. He received 1 unit of packed RBCs. 2. EGD showed that he has duodenal ulcer with no active bleeding and his hemoglobin and hematocrit is stable. 3. Other medical problems include: A. Benign prostatic hypertrophy. B. Gastroesophageal reflux disease. C. Obstructive sleep apnea. D. Multiple ventral hernias, status post exploration and he underwent right hemicolectomy. 4. Urinary tract infection for which he is on IV antibiotic. PLAN: To continue to monitor his hemoglobin and hematocrit and await the urine culture, he will be discharged tomorrow to [facility] if he remains stable. GILDA ALVARADO MD DR: ANGIE/alina JOB#: [id number] / [id number]
--- NOTE | 2020-09-19 10:39 | PDOC ---
Date of Service: DATE: 09/19/20 TIME: 10:35 Subjective: Subjective: No stools/bleeding. Lower abdominal cramping and not passing gas. Doesn't want to leave until he has a stool. Eating soft diet. Objective: Vital Signs: Vital Signs Date Time Temp Pulse Resp B/P (MAP) Pulse Ox O2 Delivery O2 Flow Rate FiO2 09/19/20 08:00 Room Air 09/19/20 07:00 98.2 67 18 132/70 (90) 96 98.2 Labs: Laboratory Tests Test 09/18/20 16:18 09/19/20 06:30 Hemoglobin 8.3 g/dL 8.0 g/dL Hematocrit 23.6 % 23.4 % White Blood Count 7.5 x10^3/uL Red Blood Count 2.48 x10^6/uL Mean Corpuscular Volume 94 fL Mean Corpuscular Hemoglobin 32 pg Mean Corpuscular Hemoglobin Concent 34 g/dL Red Cell Distribution Width 14.0 % Platelet Count 200 x10^3/uL Sodium Level 141 mmol/L Potassium Level 3.2 mmol/L Chloride Level 107 mmol/L Carbon Dioxide Level 27 mmol/L Anion Gap 7 Blood Urea Nitrogen 4 mg/dL Creatinine 0.9 mg/dL Estimated GFR (Cockcroft-Gault) 83.2 Glucose Level 95 mg/dL Calcium Level 8.3 mg/dL Imaging: EGD 09/16 E--Healed reflux distally; no clear Dutta's (ultrashort if present). G--Normal D--1.0 cm ulcer near junction; of bulb and first portion. No active bleeding, clot, or other stigmata to indicate high-risk of rebleeding. No blood in duodenum. IMP: DU, probably bled near discharge from [facility]. No signs of recent bleeding. GERD, no obvious Dutta's. REC: Continue clears another 48 hours. PO PPI BID; more effective PO. If hemoglobin stable over 48 hours, advance diet. PE: GEN: NAD LUNGS: CTAB HEART: RRR ABD: NABS, S/ND/NT NEURO/PSYCH: A & O 3 A/P: Melena - resolved? Anemia - Hgb stable DU, GERD - on PPI Recent SBR @ [facility] ?UTI COVID negative 09/16 -- Continue same per GI. Justicifation of Admission Dx: Justifications for Admission: Justification of Admission Dx: Yes DUSTY RAMON Sep 19, 2020 10:39
[2020-09-19 11:00] VITALS: BP 144/73
[2020-09-19] MEDS: cefTRIAXone IV Push 1 GM VIAL. IVP SCH (11:21)
--- NOTE | 2020-09-19 11:25 | NUR ---
SW following. Discussed with RN, pt agreeable to return to [facility] however has not had a bowel movement yet, and would like to have one before he returns to the facility. Pt has been given miralax. Awaiting bowel movement. SW faxed clinical updates and discharge orders, notified [facility] of potential discharge today or tomorrow. SW will continue to follow.
[2020-09-19 15:00] VITALS: BP 137/79
[2020-09-19 19:00] VITALS: BP 144/75
[2020-09-19] MEDS: MIRTAZAPINE 15 MG TABLET PO SCH (20:49)
[2020-09-19 23:00] VITALS: BP 112/68
[2020-09-20 03:00] VITALS: BP 122/68
[2020-09-20] MEDS: IV NORMAL SALINE 1000ML BAG 1,000 ML IV SCH (05:57)
[2020-09-20 07:00] VITALS: BP 138/78
[2020-09-20 08:01] LABS: HEMATOCRIT 26.4 % (39.0-53.0); HEMOGLOBIN 8.9 g/dL (13.0-17.5); RED BLOOD COUNT 2.79 x10^6/uL (4.30-5.70); WHITE BLOOD COUNT 6.1 x10^3/uL (4.0-11.0)
[2020-09-20 08:02] LABS: CALCIUM 8.7 mg/dL (8.5-10.1); CREATININE 0.9 mg/dL (0.7-1.3); GFR 83.2; POTASSIUM 3.6 mmol/L (3.5-5.1)
--- NOTE | 2020-09-20 09:47 | SNU/HH DC ---
DISCHARGE ORDERS DISCHARGE INFORMATION: DISCHARGE DATE: Sep 20, 2020 FINAL DIAGNOSIS upper gastrointestinal bleeding blood loss anemia duodenal ulcer CONDITION ON DISCHARGE: Stable CODE STATUS: Code Status: Full CARE HOME: SNF STAY <30 DAYS: Yes POST DISCHARGE ORDERS: ACTIVITY ORDERS: Activity as tolerated DIET AFTER DISCHARGE: Regular TREATMENT/EQUIPMENT ORDERS: Physical Therapy For: Evalulation/Treatment Occupational Therapy For: Evaluation/Treatment DISCHARGE MEDICATIONS: Home Meds Reported Medications Tamsulosin Hcl (FLOMAX) 0.4 Mg Cap.er.24h, 0.4 MG PO DAILY for prostrate, TAB 09/14/20 Sertraline Hcl (ZOLOFT) 100 Mg Tablet, 1 TAB PO DAILY for ptsd, #30 TAB 5 Refills 09/14/20 Mirtazapine (REMERON) 15 Mg Tablet, 15 MG PO DAILY for post traumtic stress dis, TAB 09/14/20 Polyethylene Glycol 3350 (POLYETHYLENE GLYCOL 3350) 2,500 Gm Powder, 17 GM PO DAILY for constipation, #255 GM 0 Refills 09/14/20 Pantoprazole Sodium (PROTONIX) 20 Mg Tablet.dr, 1 TAB PO DAILY for reflux, #30 TAB 09/14/20 Oxycodone Hcl (OXYCODONE HCL) 5 Mg Capsule, 5 MG PO PRN Q6HRS PRN for PAIN, TAB 0 Refills 09/14/20 Ondansetron Hcl (ONDANSETRON HCL) 4 Mg Tablet, 1 TAB PO PRN Q8HRS PRN for NAUSEA/VOMITING, #10 TAB 1 Refill 09/14/20 Methocarbamol (ROBAXIN-750) 750 Mg Tablet, 500 MG PO QID for r arthitis, TAB 09/14/20 Melatonin (MELATONIN) 3 Mg Tab.rapdis, 2 TAB PO QHS for sleep for 30 Days, #60 TAB 0 Refills 09/14/20 Lidocaine (Lidocaine PATCH ) 1 Each Adh..patch, 1 EACH TP DAILY for FOR LOCAL PAIN, PATCH REMOVE AFTER 12 HOURS 09/14/20 Ibuprofen (IBUPROFEN) 600 Mg Tablet, 600 MG PO PRN Q6HRS PRN for INFLAMMATION, TAB 09/14/20 Hydrocodone/Acetaminophen (Hydrocodone-Acetamin 10-325 mg) 1 Each Tablet, 1 EACH PO PRN Q6HRS PRN for PAIN, TAB 09/14/20 Gabapentin (GABAPENTIN) 600 Mg Tablet, 300 MG PO TID for NEUROGENIC PAIN, TAB 09/14/20 Fluticasone Propionate (FLUTICASONE PROPIONATE NASAL SPRAY) 16 Gm [place].susp, 2 SPRAY NS DAILY for allergies, #1 INHALER 11 Refills 09/14/20 Finasteride (FINASTERIDE) 5 Mg Tablet, 1 TAB PO DAILY for retention of urine, #30 TAB 11 Refills 09/14/20 Docusate Sodium (DOCUSATE SODIUM) 100 Mg Capsule, 1 CAP PO BID for constipation for 7 Days, #14 CAP 0 Refills 09/14/20 Zolpidem Tartrate (AMBIEN) 5 Mg Tablet, 5 MG PO PRN QHS PRN for INSOMNIA, TAB 0 Refills 09/14/20 Acetaminophen (ACETAMINOPHEN) 500 Mg Tablet, 2 TAB PO PRN Q8HRS PRN for pain or fever for 15 Days, #60 TAB 0 Refills 09/14/20 GILDA ALVARADO MD Sep 20, 2020 09:47
--- NOTE | 2020-09-20 09:54 | PDOC ---
Date of Service: DATE: 09/20/20 TIME: 09:50 Subjective: Subjective: Biggest concern today is making sure the nursing facility gets a proper med list and that they have necessary meds available - said they didn't have some when he was briefly there before. Reports small stool, no bleeding. Has "bladder pain," questions about antibiotics. Tolerating diet. Objective: Objective: D/w Dr. Avina. Vital Signs: Vital Signs Date Time Temp Pulse Resp B/P (MAP) Pulse Ox O2 Delivery O2 Flow Rate FiO2 09/20/20 07:00 98.5 71 20 138/78 (98) 96 98.5 09/19/20 20:00 Room Air Labs: Laboratory Tests Test 09/20/20 07:10 White Blood Count 6.1 x10^3/uL Red Blood Count 2.79 x10^6/uL Hemoglobin 8.9 g/dL Hematocrit 26.4 % Mean Corpuscular Volume 95 fL Mean Corpuscular Hemoglobin 32 pg Mean Corpuscular Hemoglobin Concent 34 g/dL Red Cell Distribution Width 14.0 % Platelet Count 261 x10^3/uL Sodium Level 140 mmol/L Potassium Level 3.6 mmol/L Chloride Level 104 mmol/L Carbon Dioxide Level 27 mmol/L Anion Gap 9 Blood Urea Nitrogen 8 mg/dL Creatinine 0.9 mg/dL Estimated GFR (Cockcroft-Gault) 83.2 Glucose Level 98 mg/dL Calcium Level 8.7 mg/dL PE: GEN: NAD - was in restroom brushing teeth, walked back to bed, wearing sweats LUNGS: CTAB HEART: RRR ABD: NABS, soft, non-tender NEURO/PSYCH: A & O 3 A/P: Melena - resolved Anemia - Hgb improving DU, GERD - on PPI [facility] ?const[facility] - seems like he's familiar w/ taking Miralax/adjusting dose ?UTI - on atbx per primary COVID negative 09/16 -- Dc per primary on PPI QD. Avoid NSAIDs. Justicifation of Admission Dx: Justifications for Admission: Justification of Admission Dx: Yes DUSTY RAMON Sep 20, 2020 09:53
--- NOTE | 2020-09-20 10:07 | NUR ---
SW following for discharge planning. Spoke with RN and reviewed chart. Spoke with Gibson from [facility] adn they don't have a bed today. Spoke with Rupali from [facility] and they have a bed. Met with pt. Pt willing to go to [facility] on discharge. SW provided reviews from [email or web address] at pt request. Phoned and faxed clinicals and discharge orders to [facility]. SW awaiting return call from Rupali with final acceptance and a sheepskin pickler time. SW following. Addendum: 09/20/20 at 1148 by FREDRICK TERRY SW Transportation arranged for noon. Orders faxed. RN to call report. Pt notified. Clinicals ready to be sent with pt. No further SW needs at this time.
[2020-09-20 10:22] VITALS: BP 132/71
[2020-09-20] MEDS: FINASTERIDE 5 MG TABLET. PO SCH (10:26)
[2020-09-20] MEDS: SERTRALINE 50 MG TABLET. PO SCH (10:26)
[2020-09-20] MEDS: METHOCARBAMOL 500 MG TABLET PO SCH (10:26)
[2020-09-20] MEDS: PANTOPRAZOLE 40 MG TABLET.DR. PO SCH (10:26)
[2020-09-20] MEDS: POTASSIUM CHLORIDE 20 MEQ TABLET.ER. PO SCH (10:26)
[2020-09-20] MEDS: TAMSULOSIN 0.4 MG CAP.ER.24H. PO SCH (10:26)
[2020-09-20] MEDS: LIDOCAINE (700MG/PATCH) PATCH. TP SCH (10:27)
--- NOTE | 2020-09-20 13:19 | NUR ---
PATIENT DISCHARGED TO [facility]. PT STABLE UPON DC. REPORT GIVEN TO FACILITY. MEDS AND FOLLOW UP REVIEWED.
--- NOTE | 2020-09-20 19:46 | DS ---
DATE OF DISCHARGE: 09/20/2020 HOSPITAL COURSE: The patient is a 70-year-old male patient who was seen originally at [facility] Emergency [facility], where he presented with dizziness and was hypotensive and fell backward. He was evaluated in the Emergency Room. According to him, he has had 3 black tarry stools. Evaluation in the Emergency Room showed that the hemoglobin and hematocrit are 7.6 and 23.3 with normal white cell count. He has received 2 units of packed RBCs and had an NG tube and was started on Protonix drip and was transferred to [facility] ICU. He was kept initially n.p.o. and we kept monitoring his H and H. His hemoglobin and hematocrit dropped down to 7 and 20.5. He did receive 1 unit of packed RBCs and since then his H and H have steadily improved. He underwent upper GI endoscopy on 09/16 which showed that the patient has a healed reflux distally. No clear varices. The stomach is normal. There is 1-cm ulcer near the junction of the bulb and first portion, but no active bleeding, clot or other stigmata to indicate high risk of rebleeding and no blood in the duodenum. The director child development center recommended continuing him on clears for another 48 hours and put him on proton pump inhibitor twice a day. Yesterday, we advanced his diet and remained stable, has had no more dizziness or lightheadedness. Denied any nausea, vomiting, diarrhea or constipation. Denied any hematemesis, melena or hematochezia. PHYSICAL EXAMINATION: GENERAL: When I saw him this morning, he looked pale, but no jaundice, cyanosis or thyromegaly. No jugular venous distension. No limb edema. VITAL SIGNS: Her heart rate was 71, blood pressure was 138/78, temperature was 98.5, respiratory rate 20 and oxygen saturation was 96%. HEAD, EYES, EARS, NOSE AND THROAT: Showed normocephalic, atraumatic. NECK: Supple. HEART: Showed normal first and second heart sounds. No gallop, rub or murmur. CHEST: Clear to auscultation. No crepitation or rhonchi. ABDOMEN: Distended, soft, nontender. NEUROLOGIC: He was awake, alert, responding appropriately. All cranial nerves intact. EXTREMITIES: He moves extremities without difficulty. He ambulates without assistance or assistive devices. LABORATORY DATA: This morning showed a white cell count of 6,100, hemoglobin 8.9, hematocrit 26.4, MCV 95 and platelet count 261,000. His chemistry this morning showed a serum sodium 140, potassium 3.6, chloride 104, bicarbonate 27, anion gap of 9, BUN 8, creatinine 0.9 and estimated GFR was 83 mL per minute. His glucose was 98 and calcium was 8.7. His INR was 1.3 and aPTT was 31. DISCHARGE MEDICATIONS: He was [place] [facility] to continue on potassium chloride 20 mEq twice a day, cefdinir 300 mg twice a day, simethicone 80 mg after meals, Protonix 40 mg twice a day, mirtazapine 15 mg at bedtime, gabapentin 300 mg 3 times a day, methocarbamol 500 mg 4 times a day, sertraline 100 mg daily, polyethylene glycol 17 g daily, oxycodone 5 mg every 6 hours p.r.n., tamsulosin 0.4 mg daily and he is also on Flonase 2 sprays to each nostril once a day, finasteride 5 mg daily, Ambien 5 mg at bedtime and hydrocodone/APAP 5/325 one tablet every 4 hours. FINAL DISCHARGE DIAGNOSES: 1. Acute blood loss anemia. His hemoglobin and hematocrit are up today at 8.9 and 25. He did receive 1 unit of packed RBCs. 2. EGD showed that he has duodenal ulcer with no active bleeding. His hemoglobin and hematocrit stabilized. 3. Other medical problems include: A. Benign prostatic hypertrophy. B. Gastroesophageal reflux disease. C. Obstructive sleep apnea. D. Multiple ventral hernias, status post exploration and underwent right hemicolectomy. 4. Urinary tract infection for which he is on IV antibiotic and will be switched to oral cefdinir. GILDA ALVARADO MD DR: ANGIE/alina JOB#: [id number] / [id number]
== END 2020-09-20 12:30 | DRG 377 ==
LOC: 1 WEST ICU 09:07 → 5 NORTH 18:11
PROVIDERS: ADMIT Internal Medicine; ATTEND Internal Medicine
PROC: 30233N1 Transfusion of Nonautologous Red Blood Cells into Peripheral Vein, Percutaneous Approach (ICD-10-PCS; 2020-09-16)
PROC: 0DJ08ZZ Inspection of Upper Intestinal Tract, Via Natural or Artificial Opening Endoscopic (ICD-10-PCS; principal; 2020-09-16 13:15)
PROC: 5A09357 Assistance with Respiratory Ventilation, Less than 24 Consecutive Hours, Continuous Positive Airway Pressure (ICD-10-PCS; 2020-09-17)
DX: K26.4 Chronic or unspecified duodenal ulcer with hemorrhage (principal); E43 Unspecified severe protein-calorie malnutrition; D62 Acute posthemorrhagic anemia; N39.0 Urinary tract infection, site not specified; D64.9 Anemia, unspecified; K21.9 Gastro-esophageal reflux disease without esophagitis; K22.70 Barrett's esophagus without dysplasia; Z68.29 Body mass index [BMI] 29.0-29.9, adult; I10 Essential (primary) hypertension; G47.33 Obstructive sleep apnea (adult) (pediatric); F43.10 Post-traumatic stress disorder, unspecified; K43.9 Ventral hernia without obstruction or gangrene; I25.10 Atherosclerotic heart disease of native coronary artery without angina pectoris; M19.011 Primary osteoarthritis, right shoulder; N40.1 Benign prostatic hyperplasia with lower urinary tract symptoms; Z20.822 Contact with and (suspected) exposure to COVID-19; Z80.0 Family history of malignant neoplasm of digestive organs; Z80.1 Family history of malignant neoplasm of trachea, bronchus and lung; Z87.891 Personal history of nicotine dependence; Z90.49 Acquired absence of other specified parts of digestive tract; Z95.5 Presence of coronary angioplasty implant and graft
CPT/HCPCS: 36415; 43235; 78278; 80048; 80053; 81001; 82728; 83540; 83550; 85014; 85018; 85025; 85027; 85610; 85730; 86850; 86900; 86901; 86920; 87077; 87086; 87186; 87426; 96374; A9560; C9113; J0696; J2704; J3010; J7030; P9016; U0003; 97116-GP; G0378